=== PATIENT | male | born 1970 | race Caucasian/White ===

== ENCOUNTER 2020-12-11 10:24 | Emergency (ER) | payer OTHER ==
[2020-12-11 10:35] VITALS: BP 127/79; PULSE 73; TEMP 98.9; BMI 31.0
== END 2020-12-11 12:00 | disposition home or self-care (01) ==
LOC: FER 10:24
DX: S20.211A Contusion of right front wall of thorax, initial encounter (principal); V09.20XA Pedestrian injured in traffic accident involving unspecified motor vehicles, initial encounter
CPT/HCPCS: 71101-TC-RT-FY; 99283-25

== ENCOUNTER 2023-05-04 15:56 | Emergency (ER) | payer OTHER ==
[2023-05-04 16:08] VITALS: BP 139/95; PULSE 90; RESP 18; TEMP 98.3; BMI 30.1
== END 2023-05-04 16:55 | disposition home or self-care (01) ==
LOC: FER 15:56
PROC: 2W3CX1Z Immobilization of Right Lower Arm using Splint (ICD-10-PCS; principal; 2023-05-04)
DX: M79.641 Pain in right hand (principal); S62.339A Displaced fracture of neck of unspecified metacarpal bone, initial encounter for closed fracture; W22.8XXA Striking against or struck by other objects, initial encounter
CPT/HCPCS: 73130-TC-RT-FY; 99283-25

== ENCOUNTER 2023-05-11 12:19 | Emergency (ER) | payer OTHER ==
[2023-05-11 12:30] VITALS: BP 147/92; PULSE 73; RESP 17; TEMP 98; BMI 32.5
== END 2023-05-11 13:56 | disposition home or self-care (01) ==
LOC: FER 12:19
DX: S62.339D Displaced fracture of neck of unspecified metacarpal bone, subsequent encounter for fracture with routine healing (principal); M79.89 Other specified soft tissue disorders; M79.644 Pain in right finger(s); X58.XXXD Exposure to other specified factors, subsequent encounter
CPT/HCPCS: 73130-TC-RT-FY; 99283-25